=== PATIENT | female | born 1995 | race Caucasian/White ===

== ENCOUNTER 2022-12-18 09:44 | Emergency (ER) | payer OTHER ==
[~2022-12-18] VITALS: Ht 170.2 cm; Wt 78.5 kg
--- OUTSIDE RECORDS SUMMARY | ~2022-12-18 | XMS | Continuity of Care Document ---
Demographics + + + | Address | [address] | | | [place] [address] | + + + | Preferred Language | Unknown | + + + | Marital Status | Never | + + + | Jehovah'S Witness Affiliation | Unknown | + + + | Race | White | + + + | Ethnic Group | Not or | + + + Author + + + | Author | [place] | + + + | Organization | [facility] | + + + | Address | [address] | | | [place] [address] | + + + | Phone | | + + + Care Team Providers + + + + | Care Multimedia Programmer Name | Role | Phone | + + + + Unavailable | Unavailable | + + + + Unavailable | Unavailable | + + + + Allergies and Intolerances + + + + + + | date | description | facility | reaction | severity | + + + + + + | (no date) | No Known Drug | [facility] | (no reaction) | (no severity) | | | Allergies | | | | + + + + + + Encounters No information. Functional Status No information. Immunizations No information. Medications No information. Problems + + + + | date | description | facility | + + + + | 2015-05-21 00:00 | Toothache | [facility] | + + + + | 2022-07-31 00:00 | Patient left without being | [facility] | | | seen | | + + + + | 2022-10-27 08:53 | ENCNTR FOR SUPRVSN OF | [facility] | | | NORMAL PREG, UNSP, SECOND | | | | TRIMESTER | | + + + + | 2022-10-27 08:53 | 28 WEEKS GESTATION OF | [facility] | | | | | + + + + | 2022-10-27 09:00 | 28 WEEKS GESTATION OF | [facility] | | | | | + + + + Procedures No information. Results/Labs No information. Social History No information. Vital Signs + + + +---------+ | date | measurement | value | units | + + + +---------+ | 2022-07-31 00:00 | BMI | 27.1 | kg/m2 | + + + +---------+ | 2022-07-31 00:00 | BP_diastolic | 89 | mmHg | + + + +---------+ | 2022-07-31 00:00 | BP_systolic | 136 | mmHg | + + + +---------+ | 2022-07-31 00:00 | heart_rate | 89 | /min | + + + +---------+ | 2022-07-31 00:00 | height_metric | 170.18 | cm | + + + +---------+ | 2022-07-31 00:00 | height_standard | 67 | in | + + + +---------+ | 2022-07-31 00:00 | o2_saturation | 99 | % | + + + +---------+ | 2022-07-31 00:00 | respiration_rate | 17 | /min | + + + +---------+ | 2022-07-31 00:00 | temperature_metric | 36.89 | C | | | | | | + + + +---------+ | 2022-07-31 00:00 | | 98.4 | F | | | temperature_standar | | | | | d | | | + + + +---------+ | 2022-07-31 00:00 | weight_metric | 78.5 | kg | + + + +---------+ | 2022-07-31 00:00 | weight_standard | 173.06 | lb | + + + +---------+"
--- OUTSIDE RECORDS SUMMARY | ~2022-12-18 | XMS | Continuity of Care Document ---
Demographics + + + | Address | [address] | | | [place] [address] | + + + | Preferred Language | Unknown | + + + | Marital Status | Never | + + + | Anglican Affiliation | Unknown | + + + | Race | White | + + + | Ethnic Group | Not or | + + + Author + + + | Author | [facility] | + + + | Organization | [facility] | + + + | Address | [address] | | | [place] [address] | + + + | Phone | | + + + Care Team Providers + + + + | Care Solar Electric Installer Name | Role | Phone | + [...] + | 2015-05-21 00:00 | Toothache | [facility] | + + + + | 2022-07-31 00:00 | Patient left without being | [facility] | | | seen | | + [...]
[~2022-12-18 09:44] MED LIST: CEPHALEXIN500 MG PO; NORCO 5-325 TA1 EACH PO; PENICILLIN V P500 MG PO; TRAMADOL HCL50 MG PO
--- OUTSIDE RECORDS SUMMARY | 2022-12-18 09:48 | XMS ---
PreManage Notification: LUIS MANUEL HUDDLESTON Security Sports Information Director Events 1 event(s) in the past 18 months Most recent security events: Elopement at [facility] 07/31/2022 08:44 - Patient eloped before treatment completed. - Patient with suicidal and/or homicidal ideations eloped. - Patient eloped with IV in place. Details: Patient left AMA CRITERIA MET - [facility] PROVIDERS -Karen- Dentist: Antique Jewelry Repairer [facility] PHONE: [phone] Yoni has no Care Guidelines for this patient. E.DBeth VISIT COUNT (12 MO.) 2 [facility] TOTAL 2 NOTE: Visits indicate total known visits. ED/UCC VISIT TRACKING (12 MO.) 12/18/2022 09:45 [facility] TYPE: Emergency COMPLAINT: - VOMITING, CONGESTION 07/31/2022 08:44 [facility] TYPE: Emergency COMPLAINT: - N/V, SOB, DIZZY INPATIENT VISIT TRACKING (12 MO.) No inpatient visits to display in this time frame [email or web address]
[2022-12-18] MEDS ORDERED: BUPRENORPHINE HC2 MG SL (09:52)
[2022-12-18 10:18] LABS: BASOPHILS 0.4 % (0-2); EOSINOPHILS 0.8 % (0-6); HEMATOCRIT 35.7 % (35.0-50.0); HEMOGLOBIN 11.7 g/dL (12.0-18.0); LYMPHOCYTES 3.3 % (24-44); MCHC 32.6 g/dl (30-36); MCV 79.6 fl (81-99); MONOCYTES 3.3 % (0-12); NEUTROPHILS 92.2 % (39-80); PLATELET COUNT 199 K/uL (140-440); RBC 4.49 M/ul (4.3-5.7); RDW 13.1 (10.5-15.0)
[2022-12-18 10:34] LABS: ALBUMIN 2.8 g/dL (3.4-5.0); ALBUMIN/GLOBULIN RATIO 0.78 (1.1-2.4); ANION GAP 15.7 (7-21); BILIRUBIN, TOTAL 0.4 ng/dL (0.2-1.0); BUN/CREATININE RATIO 14.89 (6.0-28.6); CALCIUM 8.5 mg/dL (8.5-10.1); CREATININE, SERUM 0.47 mg/dL (0.55-1.02); POTASSIUM 3.7 mmol/L (3.5-5.1); PROTEIN, TOTAL 6.4 g/dL (6.4-8.2)
[2022-12-18 11:28] LABS: BILIRUBIN, URINE NEGATIVE (negative); BLOOD/HGB, URINE NEGATIVE (Negative); KETONE, URINE SMALL (Negative); LEUK ESTERASE, URINE NEGATIVE (negative); NITRITE, URINE NEGATIVE (negative); PH, URINE 5.5 (5-7)
[2022-12-18] MEDS ORDERED: PREDNISONE20 MG PO (11:48)
[2022-12-18] MEDS ORDERED: VENTOLIN HFA18 GM INH (11:48)
[2022-12-18] MEDS ORDERED: ONDANSETRON ODT8 MG PO (11:48)
[2022-12-18] MEDS ORDERED: AMOXICILLIN500 MG PO (11:48)
[2022-12-18 12:12] VITALS: BP 114/77
== END 2022-12-18 12:12 | disposition home or self-care (01) ==
LOC: ED 09:44
PROVIDERS: Emergency Medicine
DX: O99.513 Diseases of the respiratory system complicating pregnancy, third trimester (principal); J18.9 Pneumonia, unspecified organism; J45.901 Unspecified asthma with (acute) exacerbation; Z3A.33 33 weeks gestation of pregnancy
CPT/HCPCS: 36415; 71045; 80053; 81003; 85025; 94640; 96361; 96374; 99285-25; C9803; J2405; J7030; J8540; U0002